=== PATIENT | male | born 1955 | race Caucasian/White ===

== ENCOUNTER 2024-09-04 18:33 | Inpatient (IN) | payer MEDICARE, MEDICAID ==
[~2024-09-04] VITALS: Ht 172.7 cm; Wt 93.0 kg
[~2024-09-04 18:33] MED LIST: GABA-290 PO; LINA145C PO; OMEP20TA23 PO; PREG50CA PO; TAMS-11 PO
[2024-09-04 20:20] LABS: BASOPHILS % 0.5 % (0.0-2.0); HEMATOCRIT. 40.7 % (42.0-52.0); HEMOGLOBIN. 13.6 g/dL (14.0-18.0); LYMPHOCYTES % 33.4 % (20.0-50.0); MEAN CORPUSCULAR HGB CONC 33.4 g/dL (31.0-37.0); MEAN CORPUSCULAR VOLUME 86.8 fL (80.0-94.0); MEAN PLATELET VOLUME 9.3 fl (7.4-10.4); MONOCYTES % 9.2 % (2.0-8.0); NEUTROPHILS % 54.9 % (40.0-76.0); PLATELET 178 x1000/uL (130-400); RED BLOOD CELL COUNT 4.69 mill/uL (4.7-6.1); RED CELL DISTRIBUTION WIDTH 14.9 % (11.6-14.6); WHITE BLOOD COUNT 7.2 x1000/uL (4.5-11.0)
[2024-09-04 20:32] LABS: CALCIUM 10.2 mg/dL (8.7-10.4); CARBON DIOXIDE 23 mEq/L (21-32); CHLORIDE 110 mEq/L (98-107); PARTIAL THROMBOPLASTIN TIME 26.9 sec (23.4-31.0); POTASSIUM 4.1 mEq/L (3.5-5.1); SODIUM 140 mEq/L (136-145)
[2024-09-04 20:37] LABS: CREATININE 0.7 mg/dL (0.6-1.3)
[2024-09-04 20:38] LABS: GLUCOSE 112 mg/dL (70-105); UREA NITROGEN BLOOD 13 mg/dL (9-23)
[2024-09-04 20:42] LABS: ALANINE AMINOTRANSFERASE 47 IU/L (10-49); ALBUMIN 4.2 g/dL (3.2-4.8); ASPARTATE AMINOTRANSFERASE 31 IU/L (<34); BILIRUBIN DIRECT 0.2 mg/dL (<=3.0); BILIRUBIN TOTAL 0.6 mg/dL (0.1-1.0); PROTEIN TOTAL 6.9 g/dL (6.0-8.3)
[2024-09-04] MEDS ORDERED: NALOXONE HCL 0.4MG/ML VIAL IV PRN (20:45)
[2024-09-04 20:58] LABS: TROPONIN I HIGH SENSITIVITY < 4 ng/L (3.0-53)
[2024-09-04 20:58] LABS: CLARITY URINE CLOUDY (CLEAR); COLOR URINE YELLOW (YELLOW); GLUCOSE URINE NEGATIVE (NEGATIVE); KETONES URINE NEGATIVE (NEGATIVE); LEUKOCYTE ESTERASE URINE 1+ (NEGATIVE); NITRITE URINE POSITIVE (NEGATIVE); OCCULT BLOOD URINE NEGATIVE (NEGATIVE); PROTEIN URINE NEGATIVE (NEGATIVE); SPECIFIC GRAVITY URINE 1.022 (1.005-1.030); UROBILINOGEN URINE 0.2 E.U./dL (0.2-1.0)
[2024-09-04 21:09] LABS: BACTERIA URINE 2+; SQUAMOUS EPITHELIAL CELL URINE FEW /lpf (RARE/1+)
[2024-09-04] MEDS ORDERED: LORAZEPAM 0.5MG TABLET PO PRN (23:30)
[2024-09-04] MEDS ORDERED: ACETAMINOPHEN 325MG TABLET PO PRN ×2 (23:30)
[2024-09-04] MEDS ORDERED: DEXTROSE 50% WATER 50ML SYRINGE IV PRN (23:30)
[2024-09-04] MEDS ORDERED: IPRATROPIUM/ALBUTEROL 0.5-3(2.5)MG/3ML NEB HHN PRN (23:30)
[2024-09-05] MEDS ORDERED: CLINDAMYCIN 600MG PREMIX 50 ML IV SCH (00:30)
[2024-09-05 00:48] LABS: PHOSPHORUS 2.4 mg/dL (2.5-4.9)
[2024-09-05] MEDS: SODIUM CHLORIDE 0.9% 1,000 ML IV SCH (01:00)
[2024-09-05] MEDS: CEFTRIAXONE 1GM/50ML 50 ML IV SCH (01:00)
[2024-09-05] MEDS: DEXT 5%/0.9% NACL 1,000 ML IV ONE (01:09)
[2024-09-05] MEDS: HYDROCODONE/ACETAMINOPHEN 5/325MG TABLET PO PRN (01:16)
[2024-09-05] MEDS: PANTOPRAZOLE 40MG DR TABLET PO SCH (01:16)
[2024-09-05] MEDS: CLONIDINE 0.1MG TABLET PO PRN (02:54)
[2024-09-05 04:01] VITALS: BP 156/88; PULSE 81; RESP 17; TEMP 36.8
[2024-09-05] MEDS: CLINDAMYCIN 600MG PREMIX 50 ML IV SCH (04:44)
[2024-09-05] MEDS: SODIUM PHOSPHATE 10 MMOL in DEXT 5% WATER 246.6667 ML IV NR (04:44)
[2024-09-05] MEDS: BLOOD SUGAR DIAGNOSTIC STRIP TEST SCH (07:20)
[2024-09-05 08:00] VITALS: BP 141/89; PULSE 72; RESP 18; TEMP 36.2; O2SAT 98
[2024-09-05] MEDS: GABAPENTIN 300MG CAPSULE PO SCH (11:27)
[2024-09-05] MEDS: AMLODIPINE 5MG TABLET PO NR (11:34)
[2024-09-05] MEDS: INSULIN LISPRO 100 UNITS/ML SUBCUT SCH (11:36)
[2024-09-05 12:00] VITALS: BP 170/91; PULSE 78; RESP 18; TEMP 36.4; O2SAT 98
[2024-09-05 13:16] LABS: BASOPHILS % 0.4 % (0.0-2.0); EOSINOPHILS % 1.4 % (0.0-5.0); LYMPHOCYTES % 16.9 % (20.0-50.0); MEAN CORPUSCULAR HEMOGLOBIN 29.1 pg (28.0-32.0); MEAN CORPUSCULAR HGB CONC 34.1 g/dL (31.0-37.0); MEAN CORPUSCULAR VOLUME 85.1 fL (80.0-94.0); MEAN PLATELET VOLUME 9.7 fl (7.4-10.4); MONOCYTES % 6.3 % (2.0-8.0); PLATELET 188 x1000/uL (130-400); RED BLOOD CELL COUNT 4.82 mill/uL (4.7-6.1); RED CELL DISTRIBUTION WIDTH 15.1 % (11.6-14.6); WHITE BLOOD COUNT 5.6 x1000/uL (4.5-11.0)
[2024-09-05 13:24] LABS: CHLORIDE 103 mEq/L (98-107); POTASSIUM 4.1 mEq/L (3.5-5.1); SODIUM 138 mEq/L (136-145)
[2024-09-05 13:25] LABS: CALCIUM 10.5 mg/dL (8.7-10.4); CARBON DIOXIDE 25 mEq/L (21-32)
[2024-09-05 13:30] LABS: CREATININE 0.8 mg/dL (0.6-1.3); GLUCOSE 235 mg/dL (70-105); TRIGLYCERIDE 111 mg/dL (0-150); UREA NITROGEN BLOOD 9 mg/dL (9-23)
[2024-09-05 13:31] LABS: LDL CHOLESTEROL 82 mg/dL (5-100)
[2024-09-05 13:32] LABS: ALBUMIN 4.1 g/dL (3.2-4.8); CHOLESTEROL 126 mg/dL (<200); HDL CHOLESTEROL 34 mg/dL (>55)
[2024-09-05] MEDS: ONDANSETRON HCL 4MG/2ML INJ IV PRN (15:18)
[2024-09-05 16:00] VITALS: BP 112/61; PULSE 72; RESP 18; TEMP 36.2; O2SAT 97
[2024-09-05 20:00] VITALS: BP 177/0; PULSE 74; RESP 18; TEMP 36.6; O2SAT 99
[2024-09-05] MEDS: GUAIFENESIN 200MG/10ML SUGAR FREE UDC PO PRN (21:16)
[2024-09-06] VITALS (22 sets, daily range): BP systolic 98–152; BP diastolic 0–84; PULSE 72–107; RESP 10–21; TEMP 35.9–36.6; O2SAT 93–100
[2024-09-06] MEDS: KETOROLAC 15MG/ML VIAL IV NR (03:33)
[2024-09-06 06:20] LABS: BASOPHILS % 0.4 % (0.0-2.0); EOSINOPHILS % 2.7 % (0.0-5.0); HEMATOCRIT. 40.2 % (42.0-52.0); HEMOGLOBIN. 13.4 g/dL (14.0-18.0); LYMPHOCYTES % 29.5 % (20.0-50.0); MEAN CORPUSCULAR HEMOGLOBIN 28.5 pg (28.0-32.0); MEAN CORPUSCULAR HGB CONC 33.4 g/dL (31.0-37.0); MEAN CORPUSCULAR VOLUME 85.3 fL (80.0-94.0); MEAN PLATELET VOLUME 9.8 fl (7.4-10.4); MONOCYTES % 9.5 % (2.0-8.0); NEUTROPHILS % 57.9 % (40.0-76.0); PLATELET 181 x1000/uL (130-400); RED BLOOD CELL COUNT 4.71 mill/uL (4.7-6.1); RED CELL DISTRIBUTION WIDTH 15.2 % (11.6-14.6); WHITE BLOOD COUNT 6.4 x1000/uL (4.5-11.0)
[2024-09-06 06:36] LABS: CARBON DIOXIDE 25 mEq/L (21-32); CHLORIDE 104 mEq/L (98-107); POTASSIUM 4.2 mEq/L (3.5-5.1); SODIUM 135 mEq/L (136-145)
[2024-09-06 06:38] LABS: CALCIUM 10.2 mg/dL (8.7-10.4)
[2024-09-06 06:42] LABS: CREATININE 0.6 mg/dL (0.6-1.3); GLUCOSE 140 mg/dL (70-105)
[2024-09-06 06:43] LABS: CHOLESTEROL 132 mg/dL (<200); LDL CHOLESTEROL 82 mg/dL (5-100); TRIGLYCERIDE 109 mg/dL (0-150); UREA NITROGEN BLOOD 12 mg/dL (9-23)
[2024-09-06 06:44] LABS: HDL CHOLESTEROL 31 mg/dL (>55)
[2024-09-06] MEDS ORDERED: GABA800T97 PO (08:35)
[2024-09-06] MEDS ORDERED: AMLODIPINE 5MG TABLET PO SCH ×2 (09:00)
[2024-09-06] MEDS ORDERED: THROMBIN (BOVINE) 5000 UNITS/VIAL TOP ONE (11:41)
[2024-09-06] MEDS ORDERED: LIDOCAINE HCL/EPINEPHRINE 1%-EPI 1:100,000 20ML VIAL ONE (11:42)
[2024-09-06] MEDS ORDERED: GENTAMICIN SULF 40MG/ML 2ML VIAL ONE (11:42)
[2024-09-06] MEDS ORDERED: DEXAMETHASONE 4MG/ML 1ML VIAL ONE (12:20)
[2024-09-06] MEDS ORDERED: PROPOFOL 200MG/20ML VIAL IV ONE (12:20)
[2024-09-06] MEDS ORDERED: FENTANYL CITRATE/PF 50MCG/ML 2ML VIAL ONE (12:20)
[2024-09-06] MEDS ORDERED: ONDANSETRON HCL 4MG/2ML INJ ONE (12:20)
[2024-09-06] MEDS ORDERED: ETOMIDATE 2MG/ML 10ML VIAL IV ONE (12:20)
[2024-09-06] MEDS ORDERED: MIDAZOLAM HCL 2 MG/2 ML VIAL ONE (12:21)
[2024-09-06] MEDS ORDERED: ROCURONIUM BROMIDE 10MG/ML VIAL 5ML IV ONE (12:40)
[2024-09-06 12:49] LABS: *AMPHETAMINES SCREEN URINE NEGATIVE (NEGATIVE); *BARBITURATES SCREEN URINE NEGATIVE (NEGATIVE); *BENZODIAZEPINES SCREEN URINE NEGATIVE (NEGATIVE); *COCAINE SCREEN URINE NEGATIVE (NEGATIVE)
[2024-09-06 12:50] LABS: CANNABINOID URINE SCREEN NEGATIVE (NEGATIVE); ECSTASY MDMA SCREEN URINE NEGATIVE (NEGATIVE); METHADONE URINE SCREEN NEGATIVE (NEGATIVE); OPIATES URINE SCREEN PRESUMPTIVE POSITIVE (NEGATIVE); PHENCYCLIDINE URINE SCREEN NEGATIVE (NEGATIVE)
[2024-09-06] MEDS ORDERED: HYDROMORPHONE HCL/PF 2MG/ML INJ ONE (13:17)
[2024-09-06] MEDS ORDERED: SUGAMMADEX SODIUM 200MG/2ML VIAL IV ONE (14:30)
[2024-09-06] MEDS ORDERED: HYDRALAZINE 20MG/ML VIAL ONE (14:53)
[2024-09-06] MEDS ORDERED: NICARDIPINE 100 MG in SODIUM CHLORIDE 0.9% 60 ML IV PRN (15:00)
[2024-09-06] MEDS ORDERED: NALOXONE HCL 0.4MG/ML VIAL IV PRN (15:15)
[2024-09-06] MEDS: HYDROCODONE/ACETAMINOPHEN 7.5/325MG TABLET PO PRN (16:17)
[2024-09-06] MEDS: MORPHINE SULFATE 4 MG/ML INJ (FOR IV/IM USE) IV PRN (16:34)
[2024-09-06] MEDS: TAMSULOSIN HCL 0.4MG SR CAPSULE PO SCH (21:30)
[2024-09-07] VITALS (23 sets, daily range): BP systolic 94–155; BP diastolic 59–107; PULSE 81–113; RESP 10–23; TEMP 36.4–36.8; O2SAT 91–98
[2024-09-07 06:00] LABS: CARBON DIOXIDE 22 mEq/L (21-32); CHLORIDE 106 mEq/L (98-107); POTASSIUM 3.9 mEq/L (3.5-5.1); SODIUM 136 mEq/L (136-145)
[2024-09-07 06:01] LABS: CALCIUM 9.6 mg/dL (8.7-10.4)
[2024-09-07 06:05] LABS: BASOPHILS % 0.1 % (0.0-2.0); HEMATOCRIT. 33.4 % (42.0-52.0); HEMOGLOBIN. 11.3 g/dL (14.0-18.0); LYMPHOCYTES % 12.9 % (20.0-50.0); MEAN CORPUSCULAR HEMOGLOBIN 29.3 pg (28.0-32.0); MEAN CORPUSCULAR HGB CONC 33.8 g/dL (31.0-37.0); MEAN CORPUSCULAR VOLUME 86.5 fL (80.0-94.0); MEAN PLATELET VOLUME 10.2 fl (7.4-10.4); MONOCYTES % 8.7 % (2.0-8.0); NEUTROPHILS % 78.3 % (40.0-76.0); PLATELET 171 x1000/uL (130-400); RED BLOOD CELL COUNT 3.86 mill/uL (4.7-6.1); RED CELL DISTRIBUTION WIDTH 15.2 % (11.6-14.6); WHITE BLOOD COUNT 10.8 x1000/uL (4.5-11.0)
[2024-09-07 06:06] LABS: CREATININE 0.6 mg/dL (0.6-1.3); GLUCOSE 111 mg/dL (70-105); UREA NITROGEN BLOOD 13 mg/dL (9-23)
[2024-09-07] MEDS ORDERED: AMLODIPINE 2.5MG TABLET PO SCH (09:00)
[2024-09-08] VITALS (34 sets, daily range): BP systolic 98–154; BP diastolic 68–96; PULSE 88–120; RESP 10–34; TEMP 36.7–37.2; O2SAT 90–100
[2024-09-08 05:53] LABS: BASOPHILS % 0.5 % (0.0-2.0); EOSINOPHILS % 1.3 % (0.0-5.0); HEMATOCRIT. 36.2 % (42.0-52.0); HEMOGLOBIN. 12.6 g/dL (14.0-18.0); LYMPHOCYTES % 25.5 % (20.0-50.0); MEAN CORPUSCULAR HEMOGLOBIN 29.8 pg (28.0-32.0); MEAN CORPUSCULAR HGB CONC 34.9 g/dL (31.0-37.0); MEAN CORPUSCULAR VOLUME 85.5 fL (80.0-94.0); MEAN PLATELET VOLUME 9.7 fl (7.4-10.4); MONOCYTES % 11.9 % (2.0-8.0); NEUTROPHILS % 60.8 % (40.0-76.0); PLATELET 166 x1000/uL (130-400); RED BLOOD CELL COUNT 4.23 mill/uL (4.7-6.1); RED CELL DISTRIBUTION WIDTH 15.2 % (11.6-14.6); WHITE BLOOD COUNT 8.7 x1000/uL (4.5-11.0)
[2024-09-08 06:08] LABS: CHLORIDE 105 mEq/L (98-107); SODIUM 138 mEq/L (136-145)
[2024-09-08 06:09] LABS: CALCIUM 9.9 mg/dL (8.7-10.4); CARBON DIOXIDE 25 mEq/L (21-32)
[2024-09-08 06:14] LABS: CREATININE 0.6 mg/dL (0.6-1.3); GLUCOSE 135 mg/dL (70-105); UREA NITROGEN BLOOD 11 mg/dL (9-23)
[2024-09-09] VITALS: BP 137/82; PULSE 103; RESP 18; TEMP 36.9; O2SAT 97
[2024-09-09 04:00] VITALS: BP 146/88; PULSE 101; RESP 18; TEMP 36.9; O2SAT 98
[2024-09-09] MEDS: NA PHOS,M-B/NA PHOS,DI-BA ENEMA 118ML PR PRN (05:58)
[2024-09-09 08:00] VITALS: BP 130/80; PULSE 104; RESP 20; TEMP 35.5; O2SAT 94
[2024-09-09 08:33] LABS: BASOPHILS % 0.5 % (0.0-2.0); EOSINOPHILS % 2.3 % (0.0-5.0); HEMATOCRIT. 36.6 % (42.0-52.0); HEMOGLOBIN. 12.2 g/dL (14.0-18.0); LYMPHOCYTES % 18.6 % (20.0-50.0); MEAN CORPUSCULAR HEMOGLOBIN 28.4 pg (28.0-32.0); MEAN CORPUSCULAR HGB CONC 33.4 g/dL (31.0-37.0); MEAN PLATELET VOLUME 9.6 fl (7.4-10.4); MONOCYTES % 12.2 % (2.0-8.0); NEUTROPHILS % 66.4 % (40.0-76.0); PLATELET 174 x1000/uL (130-400); RED CELL DISTRIBUTION WIDTH 15.1 % (11.6-14.6); WHITE BLOOD COUNT 9.5 x1000/uL (4.5-11.0)
[2024-09-09 08:40] LABS: CHLORIDE 104 mEq/L (98-107); SODIUM 136 mEq/L (136-145)
[2024-09-09 08:41] LABS: CARBON DIOXIDE 24 mEq/L (21-32)
[2024-09-09 08:42] LABS: CALCIUM 10.1 mg/dL (8.7-10.4)
[2024-09-09 08:46] LABS: CREATININE 0.6 mg/dL (0.6-1.3); GLUCOSE 157 mg/dL (70-105); UREA NITROGEN BLOOD 12 mg/dL (9-23)
[2024-09-09] MEDS ORDERED: HYDRALAZINE HCL 25MG TABLET PO PRN (09:45)
[2024-09-09 12:00] VITALS: BP 139/77; PULSE 101; RESP 20; TEMP 36.6; O2SAT 97
[2024-09-09 16:00] VITALS: BP 136/79; PULSE 104; RESP 20; TEMP 36.4; O2SAT 96
[2024-09-09 16:37] VITALS: BP 136/75; PULSE 99; TEMP 97.7; O2SAT 97
[2024-09-09] MEDS ORDERED: AMLODIPINE 2.5MG TABLET PO SCH (21:00)
[2024-09-11] MEDS ORDERED: LIDOCAINE HCL 4% (40MG/ML) SOLN 50ML TOP NR (07:00)
[2024-09-21] MEDS ORDERED: METF-414 PO (11:22)
[2024-09-21] MEDS ORDERED: HYDR-4009 PO (11:22)
[2024-09-21] MEDS ORDERED: AMLO2.5T45 PO (11:22)
== END 2024-09-09 19:00 | DRG 450 ==
LOC: ER 18:33 → EDBEDREQ 20:36 → 6WST 22:38 → EDBEDREQ 22:39 → MICUNO 09-06 15:00 → 6EST 09-08 22:13
PROVIDERS: ADMIT Internal Medicine; ATTEND Internal Medicine
PROC: 0RGA071 Fusion of Thoracolumbar Vertebral Joint with Autologous Tissue Substitute, Posterior Approach, Posterior Column, Open Approach (ICD-10-PCS; principal; 2024-09-06)
PROC: 01N80ZZ Release Thoracic Nerve, Open Approach (ICD-10-PCS; 2024-09-06)
PROC: 01NB0ZZ Release Lumbar Nerve, Open Approach (ICD-10-PCS; 2024-09-06)
PROC: 0QP005Z Removal of External Fixation Device from Lumbar Vertebra, Open Approach (ICD-10-PCS; 2024-09-06)
PROC: 4A11X4G Monitoring of Peripheral Nervous Electrical Activity, Intraoperative, External Approach (ICD-10-PCS; 2024-09-06)
DX: M48.05 Spinal stenosis, thoracolumbar region (principal); J96.01 Acute respiratory failure with hypoxia; M47.16 Other spondylosis with myelopathy, lumbar region; N39.0 Urinary tract infection, site not specified; G82.20 Paraplegia, unspecified; M47.14 Other spondylosis with myelopathy, thoracic region; M48.04 Spinal stenosis, thoracic region; M48.061 Spinal stenosis, lumbar region without neurogenic claudication; E11.621 Type 2 diabetes mellitus with foot ulcer; D64.9 Anemia, unspecified; E78.5 Hyperlipidemia, unspecified; N40.0 Benign prostatic hyperplasia without lower urinary tract symptoms; R26.89 Other abnormalities of gait and mobility; L97.522 Non-pressure chronic ulcer of other part of left foot with fat layer exposed; I11.9 Hypertensive heart disease without heart failure; F17.210 Nicotine dependence, cigarettes, uncomplicated; Z98.1 Arthrodesis status; Z79.84 Long term (current) use of oral hypoglycemic drugs; Z91.148 Patient's other noncompliance with medication regimen for other reason
CPT/HCPCS: 36415; 71045; 72080; 72146; 72148; 73630; 76000; 80048; 80061; 80076; 80305; 81003; 82040; 82962; 83036; 83735; 83880; 84100; 84145; 84484; 85025; 86850; 86900; 87070; 87077; 87186; 88300; 93005; 93306; 93970; 95925; 95926; 95928; 95929; 97116; 97162; 97166; 97530; 97535; 99285; A4606; J0360; J0696; J1100; J1171; J1580; J1815; J1885; J2004; J2250; J2270; J2405; J2704; J3010; J3490; J7050; J7060; C1713